=== PATIENT | female | born 1975 | race Hispanic/Latino ===

== ENCOUNTER 2019-09-14 04:05 | Emergency (ER) | payer SELFPAY ==
[2019-09-14 04:14] VITALS: BP 134/82
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
== END 2019-09-14 05:50 | disposition home or self-care (01) ==
LOC: ED 04:05
DX: S01.81XA Laceration without foreign body of other part of head, initial encounter (principal); F17.200 Nicotine dependence, unspecified, uncomplicated; W22.8XXA Striking against or struck by other objects, initial encounter; Y93.89 Activity, other specified; Y92.89 Other specified places as the place of occurrence of the external cause; Y99.8 Other external cause status